=== PATIENT | female | born 1965 | race Caucasian/White ===

== ENCOUNTER 2023-08-07 16:15 | Outpatient (RCR) | payer OTHER, SELFPAY | END 2023-12-05 23:59 | disposition home or self-care (01) | PROVIDERS: PCP Nurse Practitioner Family; Visit Provider Pediatrics | DX: M17.0 Bilateral primary osteoarthritis of knee (principal); M25.862 Other specified joint disorders, left knee; M25.562 Pain in left knee; M25.561 Pain in right knee; M25.551 Pain in right hip; Z51.89 Encounter for other specified aftercare | CPT/HCPCS: 97110; 97140; 97161 ==

== ENCOUNTER 2025-03-18 06:47 | Day surgery (SDC) | payer BC, SELFPAY ==
[2025-03-18] VITALS (22 sets, daily range): BP systolic 112–163; BP diastolic 64–89; PULSE 49–79; RESP 15–20; TEMP 35.6–37; O2SAT 93–100; BMI 46.0
[2025-03-18] MEDS: LACTATED RINGERS 1000 ML 1,000 ML 100 ML IV ×2 (06:50→09:02)
[2025-03-18] MEDS: SODIUM CHLORIDE 0.9 % (FLUSH) 10 ML SYRINGE IVF (07:45)
[2025-03-18] MEDS: CELECOXIB 200 MG CAPSULE PO ×2 (08:09→21:51)
[2025-03-18] MEDS: ACETAMINOPHEN 500 MG TABLET 1000 MG PO ×3 (08:09→21:51)
[2025-03-18] MEDS: OXYCODONE (CR) 10 MG TAB.ER.12H PO (08:10)
[2025-03-18] MEDS: fentaNYL 100 MCG/2 ML inj IVP (08:17)
[2025-03-18] MEDS: MIDAZOLAM HCL 1 MG/ML inj IVP (08:17)
--- NOTE | 2025-03-18 08:26 | SUR.PREOP ---
TIME?OUT:?0815, left knee PT/RN/MDA?VERIFICATION?OF?SURGICAL?SITE,?PROCEDURE,?AND?CONSENT OBTAINED?PRIOR?TO?INVASIVE?PROCEDURE.
[2025-03-18] MEDS: TRANEXAMIC ACID 100 MG/ML INJ 1000 MG IV (08:51)
[2025-03-18] MEDS: CEFAZOLIN 1 GM inj IVP (08:51)
--- NOTE | 2025-03-18 10:06 | CRLHL7_ITS ---
For Patients: As a result of the Cures Act, medical imaging exams and procedure reports are released immediately into your electronic medical record. You may view this report before your referring provider. If you have questions, please contact your health care provider. Indication: TKA postop Technique: Two views left knee Findings/Impression: Hardware from a left total knee arthroplasty is in satisfactory position. Bone alignment is normal. No sign of acute fracture. Postop changes are within normal limits. Dictated by Sam Cueto MD @ 03/18/2025 11:43:57 AM (Electronically Signed)
--- NOTE | 2025-03-18 10:09 | P.ORPRC_ITS ---
Procedure Note Date of procedure: 03/18/25 Procedure: PREOPERATIVE DIAGNOSIS: Left knee osteoarthritis POSTOPERATIVE DIAGNOSIS: Left knee osteoarthritis NAME OF OPERATION: Left total knee arthroplasty SURGEON: Gabe Ray MD RN NAVIGATOR: MELLISA Duffy ANESTHESIA: Spinal ESTIMATED BLOOD LOSS: 0 mL COMPLICATIONS: None SPECIMENS: None DRAINS: None PREOPERATIVE ANTIBIOTICS: Ancef 2 grams, antibiotic impregnated cement IMPLANTS: 1. J&J Attune revision CRS # 5 posterior stabilized femur, 14 mm x 50 mm cemented stem 2. #4 revision CRS fixed-bearing tibia, 14 mm x 50 mm cemented stem 3. #5 posterior stabilized, 5 mm fixed-bearing polyethylene 4. 35 patella INDICATIONS: The patient is a 59-year-old with a longstanding history of severe, unrelenting left knee pain secondary to end-stage (grade IV) left knee osteoarthritis. Despite appropriate nonoperative management, including activity modification, anti-inflammatories, [id number] pain medication, bracing, physical therapy, and injections they continue to have pain and disability. Operative intervention was offered. The risks, benefits and expected outcomes were discussed in detail. These included but were not limited to: Infection, bleeding, injury to blood vessel or nerve, venous thromboembolism. All questions were answered to their satisfaction. Use of an engineer first assistant was necessary throughout the case for patient positioning and safety, soft tissue retraction, and closure. A modifier 22 should be added to this case. The patient's weight of 107 kg with a BMI of 46 made the dissection more challenging. Additionally, stems were used on both sides of the joint to reduce the risk of aseptic loosening, given the patient's high BMI. These factors added time and cost to complete the case. PROCEDURE: Spinal anesthesia was administered. The patient was placed supine on the operating table. The engineer first assistant made sure the patient was positioned appropriately. The lower extremity was prepped and draped in the usual sterile fashion. The limb was exsanguinated with the Fidel bandage. The pneumatic tourniquet was inflated to 300 mmHg. A standard anterior incision was made with the knee in flexion. Subcutaneous dissection was sharply taken through fascial layer #1. Full-thickness medial and lateral flaps were elevated. The engineer first assistant retracted the soft tissues and protected them throughout the case. A standard subvastus approach was made. The patella was subluxed. The infrapatellar fat pad was debrided. The menisci and cruciate ligaments were sharply d?brided. Marginal osteophytes were d?brided with the rongeur. The drill was used to penetrate the femoral canal. The canal was aspirated and irrigated with pulse lavage. The intramedullary femoral guide was placed for a 5-degree valgus cut, removing 10 mm off the distal femur. The saw was used to make the cut. Whitesides line and the trans epicondylar axis were marked. The femoral sizing guide was pinned onto the distal femur. Three degrees of external rotation nicely parallels the transepicondylar axis. Pins were placed for posterior referencing. The four-in-one cutting guide was pinned onto the distal femur. The anterior, posterior, and chamfer cuts were made. The engineer first assistant protected the collateral ligaments. The revision trial was placed. The box cuts were made. The drill was used x2. The stemmed, boxed trial was placed and was an excellent fit. Attention was then turned to the proximal tibia. The intramedullary tibial guide was placed for a neutral varus/valgus cut with 5 degrees of posterior slope, removing 2 mm based off the medial tibial surface. The engineer first assistant prote cted the collateral ligaments and the neurovascular bundle. The saw was used to make the cut. Trial components were placed. The knee was nicely balanced in both flexion and extension. The trial components were removed. The tray was placed in appropriate rotation, parallel to our tibial cutting pins. It was pinned by the engineer first assistant and the drill x2 was used. The stemmed tibial trial was placed. The punch was used. The tray was removed. The punch was used again. Attention was then turned to the patella. [place] patellar thickness was 21 mm. The lobster claw resection guide was used with the 7.5 mm kavon. The saw was used to make the cut. Drill holes were made by the engineer first assistant. The trial was placed and was an excellent fit. Cancellous surfaces were irrigated with pulse lavage and thoroughly dried by the engineer first assistant. We cemented the tibial component, then the femoral component. We impacted the 5 mm polyethylene onto the tibial tray. The knee was brought into full extension. We then cemented the patellar component. Excessive cement was removed. The cement was allowed to harden. The knee was taken through a range of motion and was found to be nicely balanced in both flexion and extension. The patella tracks centrally. The engineer first assistant did a three minute dilute Betadine solution soak. The engineer first assistant irrigated the wound with 3 liters of normal saline via pulse lavage. The engineer first assistant reapproximated the extensor mechanism with #1 Vicryl in an interrupted [id number]-gu-[id number] fashion. The engineer first assistant then ran the extensor mechanism with a #1 PDO Stratafix. The engineer first assistant closed the subcutaneous tissues with a 3-0 Stratafix and the skin with a running 3-0 Stratafix in a subcuticular fashion. Glue was used to seal the skin. The engineer first assistant placed a dry dressing. Sponge and needle counts were correct x2. The patient tolerated the procedure well. There were no apparent complications. They were carefully transferred to the hospital bed and taken to the postanest hesia care unit in satisfactory condition. PLAN: The patient will be mobilized with physical therapy. Aspirin will be used for DVT prophylaxis. They will be discharged to home once medically appr opriate.
--- NOTE | 2025-03-18 10:44 | P.ANES_ITS ---
Anesthesia Charges Start Date/Time Anesthesia Start Date: 03/18/25 Anesthesia Start Time: 08:27 Stop Date/Time Anesthesia Stop Date: 03/18/25 Anesthesia Stop Time: 10:43 Coding CPT Codes CPT Codes: ANESTH KNEE ARTHROPLASTY - 08898 ([id number]) P3 - PATIENT W/SEVERE SYS DISEASE, QK - ACCOUNT EXECUTIVE KEY ACCOUNTS 2-4 CNCRNT ANES PROC, QX - TOPSTITCHER ZIGZAG SVC W/ MD MED DIRECTION
--- NOTE | 2025-03-18 10:44 | W.ANESCHARGE ---
Anesthesia Charges Start Date/Time Anesthesia Start Date: 03/18/25 Anesthesia Start Time: 08:27 Stop Date/Time Anesthesia Stop Date: 03/18/25 Anesthesia Stop Time: 10:43 Coding CPT Codes CPT Codes: ANESTH KNEE ARTHROPLASTY - 61227 ([id number]) P3 - PATIENT W/SEVERE SYS DISEASE, QK - CASING WRINGER OPERATOR 2-4 CNCRNT ANES PROC, QX - LABORATORY ADMINISTRATIVE DIRECTOR SVC W/ MD MED DIRECTION
--- NOTE | 2025-03-18 11:38 | P.ANES_ITS ---
Anesthesia Charges Start Date/Time Anesthesia Start Date: 03/18/25 Anesthesia Start Time: 08:27 Stop Date/Time Anesthesia Stop Date: 03/18/25 Anesthesia Stop Time: 10:43 Coding CPT Codes CPT Codes: ANESTH KNEE ARTHROPLASTY - 98232 ([id number]) QK - INSULATION BOARD CALENDER OPERATOR 2-4 CNCRNT ANES PROC, QX - INSIGHTS STRATEGIST SVC W/ MD MED DIRECTION, P3 - PATIENT W/SEVERE SYS DISEASE
--- NOTE | 2025-03-18 11:38 | W.ANESCHARGE ---
Anesthesia Charges Start Date/Time Anesthesia Start Date: 03/18/25 Anesthesia Start Time: 08:27 Stop Date/Time Anesthesia Stop Date: 03/18/25 Anesthesia Stop Time: 10:43 Coding CPT Codes CPT Codes: ANESTH KNEE ARTHROPLASTY - 63675 ([id number]) QK - ANIMAL SCIENTIST 2-4 CNCRNT ANES PROC, QX - MEN'S CUSTOM HAIR PIECE CONSULTANT SVC W/ MD MED DIRECTION, P3 - PATIENT W/SEVERE SYS DISEASE
--- NOTE | 2025-03-18 11:39 | W.PM.NB ---
Nerve Block Nerve Block Time Seen by Provider: 08:22 Date Seen: 03/18/25 Type of block requested by surgeon for post-operative analgesia: adductor canal Side: left Time out performed: Yes Verification of patient name: Yes Verification of date of : Yes Site marking: site marked Name of person performing procedure: Harman Continuous monitoring Was continuous monitoring of O2 sat, B/P, horseradish maker, recorded every 15 minutes?: Yes Procedure Checklist: sterile prep, needles and gloves Ultrasound guided. Images saved: Yes Medications given in 5ml increments after negative aspiration: Marcaine %: 0.25 mL: 15 Needle gauge: 20 Precedex (mcg): 25 Patient tolerated procedure well: Yes Block Charges Block Charge (with Pro Fee): Femoral Nerve Use of Ultrasound Machine for Block: Yes- US Guidance/pain block
--- NOTE | 2025-03-18 11:39 | W.PM.NB ---
Nerve Block Nerve Block Time Seen by Provider: 08:22 Date Seen: 03/18/25 Type of block requested by surgeon for post-operative analgesia: geniculars Side: left Time out performed: Yes Verification of patient name: Yes Verification of date of : Yes Site marking: site marked Name of person performing procedure: Harman Continuous monitoring Was continuous monitoring of O2 sat, B/P, acid pumper, recorded every 15 minutes?: Yes Procedure Checklist: sterile prep, needles and gloves Ultrasound guided. Images saved: Yes Medications given in 5ml increments after negative aspiration: Marcaine %: 0.25 mL: 9 Needle gauge: 25 Patient tolerated procedure well: Yes Block Charges Block Charge (with Pro Fee): Genicular Nerve Block
[2025-03-18] MEDS: OXYCODONE 5 MG TABLET PO ×3 (13:16→21:52)
--- NOTE | 2025-03-18 15:16 | PC.NURSE ---
Patient ambulates with assist of one gait belt, and walker. Patient tolerating regular diet. Patient manages pA with prn medications. family at bedside
--- NOTE | 2025-03-18 15:18 | PC.NURSE ---
Patient up with assist of gait belt, and walker. Patient tolerating a regular diet. Patients pain managed with prn medications, rest, and ice. Patient is call light appropriate, family at bedside.
--- NOTE | 2025-03-18 15:50 | PM.IMCN1 ---
Date of Consult Patient: Other Consult date: 03/18/25 Requesting Physician: Orthopedics Primary Care Provider: Poly Somers MD Consult Narrative Reason for consult: Medical management of comorbidities Narrative: Radha Mcdonald is a 59 year old female who presented to the hospital today for an elective L TKA. There were no surgical or anesthetic complications noted during procedure. Patient's H&P reviewed, PCP is Dr. Poly Somers at the [facility]. Past medical history significant for: Pre diabetes, osteoarthritis History of blood clots: No Postoperative plan: Home with Review of Systems Status of ROS: Reports: 10 or more systems reviewed and unremarkable except as noted in History and below PFSH [facility] Medical History (Updated 01/27/25 @ 15:28 by Kristen Hernández) Upper respiratory infection ?J06.9 - Acute upper respiratory infection, unspecified (ICD-10) Hoarseness ?R49.0 - Dysphonia (ICD-10) Post-viral cough syndrome ?R05.8 - Other specified cough (ICD-10) Prediabetes ?R73.03 - Prediabetes (ICD-10) Surgical History (Updated 03/18/25 @ 15:52 by Angelica Wang MD) Status post left knee replacement ?Z96.652 - Presence of left artificial knee joint (ICD-10) [place] teeth extracted ?K08.409 - Partial loss of teeth, unspecified cause, unspecified class (ICD-10) History of tonsillectomy ?Z90.89 - Acquired absence of other organs (ICD-10) Social History (Updated 01/17/25 @ 08:56 by Angelika Paredes ~ [facility], [facility]) What is your current living situation?: I presently have a place to live Problems where you live: no known problems In the past 12 months, utilities in danger of being shut off: no In past 12 months, lack of transportation kept you from medical appts, meetings, work, or getting things needed for daily living: no In the past 12 mos, have been you worried that your food would run out before you had money to buy more?: never true In the past 12 mos, the food you bought just didn't last and you didn't have money to buy more?: never true Smoking Status: Never smoker Do you use any of these nicotine containing products: None Second hand tobacco smoke exposure: No How often do you have a drink containing alcohol: never AUDIT-C Alcohol total score: 0 Non-prescribed substance use: denies use Caffeine: No Meds Home Medications and Allergies Home Medications ?Medication ?Instructions ?Recorded ?Confirmed ?Type metformin 500 mg tablet 500 mg PO BIDWMEAL 03/14/25 03/18/25 History acetaminophen 500 mg capsule 500 - 1,000 mg (1 - 2 x 500 mg) PO 03/18/25 Rx Q6H PRN pain #100 caps aspirin 81 mg chewable tablet 81 mg PO BID for DVT prophylaxis 03/18/25 Rx (Aspirin Childrens) 30 days #60 tabs oxycodone 5 mg tablet 2.5 - 5 mg (0.5 - 1 x 5 mg) PO 03/18/25 Rx Q4-6H PRN Pain #42 tabs sennosides 8.6 mg tablet (Senna 17.2 mg (2 x 8.6 mg) PO BID PRN 03/18/25 Rx Lax) constipation #100 tabs Allergies Allergy/AdvReac Type Severity Reaction Status Date / Time No Known Drug Allergies Allergy Verified 03/18/25 07:08 Exam Narrative: Exam Narrative: GEN: Alert and oriented, nontoxic. Sitting comfortably in bed HEENT: EOMIs bilaterally, no scleral icterus CV: RRR, No concerning murmurs R: LCTA bilaterally without concerning wheezing, air movement adequate Ext: wwp, no concerning edema, bilateral foot SCDs Skin: No concerning skin lesions or rashes on exposed skin Neuro: Nonfocal Psych: Appropriate Const: Vital Signs, click to edit/add: Vital Signs - 24 hr 03/18/25 07:27 03/18/25 08:18 03/18/25 10:38 Temperature 98.2 F 97.6 F Pulse Rate 72 65 60 Respiratory Rate 20 20 16 Blood Pressure 143/80 H 151/75 H 113/66 Pulse Oximetry 98 98 93 Oxygen Delivery Me thod Room Air Nasal Cannula Room Air Oxygen Flow Rate 2 03/18/25 10:45 03/18/25 10:50 03/18/25 10:55 Temperature Pulse Rate 55 L 52 L 52 L Respiratory Rate 15 16 16 Blood Pressure 112/73 121/74 117/80 Pulse Oximetry 95 98 98 Oxygen Delivery Me thod Oxygen Flow Rate 03/18/25 11:00 03/18/25 11:05 03/18/25 11:30 Temperature 98.0 F 96.1 F L Pulse Rate 49 L 53 L 49 L Respiratory Rate 16 16 16 Blood Pressure 121/80 113/64 132/78 Pulse Oximetry 98 100 99 Oxygen Delivery Me thod Room Air Room Air Oxygen Flow Rate 03/18/25 11:45 03/18/25 11:49 03/18/25 12:00 Temperature 96.8 F L 96.2 F L 96.7 F L Pulse Rate 52 L 50 L 51 L Respiratory Rate 18 16 16 Blood Pressure 132/74 122/67 122/74 Pulse Oximetry 98 98 98 Oxygen Delivery Me thod Room Air Room Air Room Air Oxygen Flow Rate 03/18/25 12:15 03/18/25 12:30 03/18/25 13:00 Temperature 98.0 F 97.9 F Pulse Rate 51 L 54 L 62 Respiratory Rate 16 16 16 Blood Pressure 123/80 120/74 123/68 Pulse Oximetry 97 99 98 Oxygen Delivery Me thod Room Air Room Air Room Air Oxygen Flow Rate 2 2 03/18/25 14:00 03/18/25 15:00 Temperature 97.9 F 97.3 F L Pulse Rate 65 65 Respiratory Rate 16 16 Blood Pressure 129/83 159/77 H Pulse Oximetry 98 98 Oxygen Delivery Me thod Room Air Room Air Oxygen Flow Rate 2 2 Assessment and Plan Assessment and plan (1) Status post left knee replacement: Status: Acute (2) Prediabetes: Status: Acute Plan - pain management and prophylaxis per orthopedic surgery team - continue home medications for comorbidities - anticipate routine postoperative course
[2025-03-18] MEDS: CEFAZOLIN 2 GM in 0.9 % SODIUM CHLORIDE Mini-bag 100 ML IVPB (16:12)
--- NOTE | 2025-03-18 19:24 | PC.NURSE ---
End of Shift: Patient pleasant and cooperative, A&O. VSS, afebrile. SpO2 maintained above 90% on RA. Patient reports pain on her left knee, managed with PRN and medication, see MAR. Dressing to left knee C/D/I. 1A walker and gait belt.
[2025-03-18] MEDS: ASPIRIN 81 MG TABLET EC PO (21:51)
[2025-03-18] MEDS: SENNOSIDES 1 TAB TABLET 2 TAB PO (21:51)
[2025-03-19] MEDS: CEFAZOLIN 2 GM in 0.9 % SODIUM CHLORIDE Mini-bag 100 ML IVPB ×2 (00:48→08:09)
[2025-03-19 04:01] VITALS: BP 140/68; PULSE 64; RESP 16; TEMP 36.9; O2SAT 98
[2025-03-19] MEDS: ACETAMINOPHEN 500 MG TABLET 1000 MG PO (04:01)
--- NOTE | 2025-03-19 06:40 | PC.NURSE ---
Pt pleasant, alert and oriented. Pain rated 6/10, prn oxy given. Denies nausea. Dressing C/D/I. Ice pack to op site. Pt 1a walker and gait belt. Pt in bed, appears to be resting, call light within reach.?
[2025-03-19 07:04] LABS: Basophils Percent Auto 0.1 % (0.0-3.0); Eosinophils Percent Auto 0.2 % (0.0-7.0); Hematocrit 35.7 % (33.0-51.0); Hemoglobin* 11.9 gm/dL (12.0-16.0); Immature Granulocytes Pct Auto 0.2 %; Lymphocytes Percent Auto 13.7 % (20-44); Mean Corpuscular HGB Conc 33 gm/dL (32-36); Mean Corpuscular Hemoglobin 29 pg (26-34); Mean Corpuscular Volume 86 fL (80-100); Neutrophils Percent Auto 73.8 % (42.0-72.0); Platelet Count* 210 K/uL (140-440); RDW Coefficient of Variation % 13.6 % (11.5-15.5); Red Blood Count 4.16 m/uL (4.00-5.20); White Blood Count* 11.12 K/uL (4.50-11.00)
[2025-03-19 07:06] LABS: Slide Review Reflex No
[2025-03-19 07:18] LABS: Chloride* 100 mmol/L (96-114)
[2025-03-19 07:19] LABS: Potassium* 4.4 mmol/L (3.6-5.1); Sodium* 132 mmol/L (135-149)
[2025-03-19 07:21] LABS: Blood Urea Nitrogen* 13 mg/dL (7-30); Creatinine* 0.8 mg/dL (0.5-1.5); Est. Creatinine Clearance* 42.44; Estimated Glomerular Filt Rate 84 ml/min
[2025-03-19 07:22] LABS: Anion Gap 5 mEq/L (7-15); Calcium* 8.9 mg/dL (8.4-10.6); Carbon Dioxide* 27 mmol/L (20-32); Glucose* 105 mg/dL (60-115)
[2025-03-19 07:30] VITALS: BP 143/81; PULSE 64; RESP 16; RESP 18; TEMP 36.6; O2SAT 100
[2025-03-19] MEDS: OXYCODONE 5 MG TABLET PO (08:10)
[2025-03-19] MEDS: CELECOXIB 200 MG CAPSULE PO (08:10)
[2025-03-19] MEDS: SENNOSIDES 1 TAB TABLET 2 TAB PO (08:10)
[2025-03-19] MEDS: ASPIRIN 81 MG TABLET EC PO (08:10)
--- NOTE | 2025-03-19 08:19 | PM.ORPN ---
Subjective Subjective Time Seen by Provider: 07:45 Date Seen: 03/19/25 Principal diagnosis: Status post left knee replacement Interval history: Radha is comfortable this morning. She will discharge to home with her today. She denies nausea vomiting. Ortho Exam Narrative Exam Narrative: Alert and oriented x3. Patient is in no acute distress. Converses without labored breathing. Hearing is grossly intact. Ambulates with a walker. Examination of the left knee shows the dressing is intact. Mild hematoma anterior knee. No erythema or warmth or sign of infection. Calves are soft and nontender. CMS intact left lower extremity. She is not able to straight leg raise today. Const Vital Signs, click to edit/add: Vital Signs - 24 hr 03/18/25 10:38 03/18/25 10:45 03/18/25 10:50 Temperature 97.6 F Pulse Rate 60 55 L 52 L Pulse Rate [Right Pulse Oximeter] Respiratory Rate 16 15 16 Blood Pressure 113/66 112/73 121/74 Blood Pressure [Left Arm] Pulse Oximetry 93 95 98 Oxygen Delivery Method Room Air Oxygen Flow Rate 03/18/25 10:55 03/18/25 11:00 03/18/25 11:05 Temperature 98.0 F Pulse Rate 52 L 49 L 53 L Pulse Rate [Right Pulse Oximeter] Respiratory Rate 16 16 16 Blood Pressure 117/80 121/80 113/64 Blood Pressure [Left Arm] Pulse Oximetry 98 98 100 Oxygen Delivery Method Room Air Oxygen Flow Rate 03/18/25 11:30 03/18/25 11:45 03/18/25 11:49 Temperature 96.1 F L 96.8 F L 96.2 F L Pulse Rate 49 L 52 L 50 L Pulse Rate [Right Pulse Oximeter] Respiratory Rate 16 18 16 Blood Pressure 132/78 132/74 122/67 Blood Pressure [Left Arm] Pulse Oximetry 99 98 98 Oxygen Delivery Method Room Air Room Air Room Air Oxygen Flow Rate 03/18/25 12:00 03/18/25 12:15 03/18/25 12:30 Temperature 96.7 F L 98.0 F Pulse Rate 51 L 51 L 54 L Pulse Rate [Right Pulse Oximeter] Respiratory Rate 16 16 16 Blood Pressure 122/74 123/80 120/74 Blood Pressure [Left Arm] Pulse Oximetry 98 97 99 Oxygen Delivery Method Room Air Room Air Room Air Oxygen Flow Rate 2 03/18/25 13:00 03/18/25 14:00 03/18/25 15:00 Temperature 97.9 F 97.9 F 97.3 F L Pulse Rate 62 65 65 Pulse Rate [Right Pulse Oximeter] Respiratory Rate 16 16 16 Blood Pressure 123/68 129/83 159/77 H Blood Pressure [Left Arm] Pulse Oximetry 98 98 98 Oxygen Delivery Method Room Air Room Air Room Air Oxygen Flow Rate 2 2 2 03/18/25 15:00 03/18/25 15:00 03/18/25 16:00 Temperature 97.6 F Pulse Rate 66 Pulse Rate [Right Pulse Oximeter] Respiratory Rate 16 16 16 Blood Pressure 145/89 H Blood Pressure [Left Arm] Pulse Oximetry 99 100 Oxygen Delivery Method Room Air Room Air Oxygen Flow Rate 03/18/25 17:00 03/18/25 19:35 03/18/25 23:00 Temperature 97.6 F 98.6 F Pulse Rate 66 Pulse Rate [Right Pulse Oximeter] 79 Respiratory Rate 16 18 18 Blood Pressure 141/80 H Blood Pressure [Left Arm] 163/70 H Pulse Oximetry 99 96 96 Oxygen Delivery Method Room Air Room Air Room Air Oxygen Flow Rate 03/18/25 23:00 03/18/25 23:50 03/19/25 04:01 Temperature 97.6 F 98.5 F Pulse Rate Pulse Rate [Right Pulse Oximeter] 72 72 64 Respiratory Rate 16 16 16 Blood Pressure Blood Pressure [Left Arm] 135/76 140/68 H Pulse Oximetry 98 98 Oxygen Delivery Method Room Air Room Air Oxygen Flow Rate 03/19/25 07:30 03/19/25 07:30 03/19/25 07:30 Temperature 97.9 F Pulse Rate Pulse Rate [Right Pulse Oximeter] 64 Respiratory Rate 16 18 18 Blood Pressure Blood Pressure [Left Arm] 143/81 H Pulse Oximetry 100 100 Oxygen Delivery Method Room Air Room Air Oxygen Flow Rate Assessment and Plan Assessment and plan (1) Status post left knee replacement: Status: Acute Assessment and Plan: Plan for discharge is today to home if they meet discharge criteria. DVT prophylaxis includes aspirin 81 mg twice daily x1 month, Compression stockings as needed for swelling. Frequent ambulation, every hour throughout the day. Remove dressing in 1 week. Observe wound and phone Orthopedics with any questions or concerns Return to clinic in 1 week for a wound check Return to clinic in 6 weeks with surgeon Minimize narcotic use. Wean off and discontinue soon as possible. Activities as tolerated. No strenuous activity. Outpatient physical therapy as scheduled. Ice and elevate the operative extremity. No restriction on ice.
--- NOTE | 2025-03-19 11:58 | PC.NURSE ---
discharge. Pt was very pleasant, she is alert and oriented x4. . Pain rated 2-3/10, prn oxy given before PT and OT. . she is eating, drinking and voiding with no problems, . Dressing C/D/I. active Ice pack to op site. Pt is up with 1assist, walker and gait belt. call light within reach.? alarms are on. PT and OT worked with her. discharge packet was done., went over medications, appointment, education and instructions. pt went over and signed personal belonging sheet. she left with 2 active ice. SL was d/c intact. she got a w/c ride to her car.
== END 2025-03-19 10:45 | disposition home or self-care (01) ==
LOC: OR 06:50 → MEDSURG 09:33
PROVIDERS: Family Medicine; PCP Pediatrics; Visit Provider Orthopaedic Surgery
PROC: (CPT 27447; principal; 2025-03-18 09:00)
DX: M17.12 Unilateral primary osteoarthritis, left knee (principal); G89.18 Other acute postprocedural pain; R73.03 Prediabetes; E66.01 Morbid (severe) obesity due to excess calories; Z68.42 Body mass index [BMI] 45.0-49.9, adult; Z79.84 Long term (current) use of oral hypoglycemic drugs; Z79.82 Long term (current) use of aspirin
CPT/HCPCS: 27447; 01402; 36415; 64447; 64454; 73560; 76942; 80048; 85025; 97110; 97116; 97161; 97165; 97530; 97535; A9270; C1776; J0665; J0690; J1100; J2250; J2405; J2704; J3010; J7120

== ENCOUNTER 2025-05-01 08:30 | Outpatient (RCR) | payer BC, SELFPAY ==
--- NOTE | 2025-03-19 15:25 | PC.SOCIAL ---
Pt. discharged home today after a LTKA. Pt. is moving well and no additional resources from social work was needed for discharge.
--- NOTE | 2025-03-21 09:31 | PT.OPEX ---
PT [facility] Start: 03/20/25 15:42 Freq: Status: Active Protocol: Document 03/21/25 07:24 HLA (Rec: 03/21/25 09:15 HLA [id number]) E-signed By Nathalie Pillai, PT, DPT Physical Therapy Outpatient Evaluation Insurance Information Recert Due Date 06/18/25 Insurance Name Medicare B,Blue Cross/Blue Shield Medical Diagnosis L TKA PMHx of URI, pre diabetes Treating Diagnosis weakness, impaired ROM, impaired transfers, impaired amb after L TKA Referring MD Ray Subjective Preferred Name Radha Subjective Feels like things are going really well at home; up to 2x/day. Using ice, up with walker. Feels she passed out seated doing seated flex 03/19/25, did have a possible seizure but likely was vasovagal per physician. Did vomit, called hospital but did not need to go in. No episodes since that time. 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 Instructed in activity level and gt progression for home. Stairs-step to pattern rails B Balance fair with walker Posture mildly rounded shldrs, hip flex in standing Sensation/Reflexes intact to light touch Other/Pertinent circumference L knee Objective 59 cm 7 cm prox to patella 54 cm mid patella 51 cm 7 cm distal to patella AAROM L knee supine 8-90 with strap AAROM seated L knee 3-95 with strap Access Code: [email or web address] URL: [email or web address] Date: 03/21/2025 Prepared by: Nathalie Pillai Exercises - Supine Single Leg Ankle Pumps - 3-5 x daily - 7 x weekly - 10 reps - edema management exercise type - Supine Quad Sets - 3 x daily - 7 x weekly - 2 sets - 10 reps - 5 seconds hold - strength exercise type - Supine Short Arc Quad - 3 x daily - 7 x weekly - 10 reps - 5 seconds hold - strength exercise type - Active Straight Leg Raise with Quad Set - 3 x daily - 7 x weekly - 10 reps - 2-3 seconds hold - strength exercise type - Supine Heel Slide - 3 x daily - 7 x weekly - 10 reps - range of motion exercise type - Supine Isometric Hamstring Set - 3 x daily - 7 x weekly - 10 reps - 5 seconds hold - strength exercise type - Seated Long Arc Quad - 3 x daily - 7 x weekly - 10 reps - 5 seconds hold - range of motion/strength exercise type - Seated Knee Flexion Stretch - 3 x daily - 7 x weekly - 10 reps - 5 seconds hold - range of motion/stretch exercise type - Seated Passive Knee Extension - 3 x daily - 7 x weekly - 1 reps - 5-15 minutes hold - range of motion/ stretch exercise type Patient Education - Safe Practices For Preventing Falls - Going Up and Down Stairs With Two Rails After Surgery - Walker WBAT - Ice Functional Test LEFS Performed & Score Assessment Assessment/ PPatient underwent L TKA on 03/17/25 returning home 03/18. PMHx includes prediabetes and URI. Pt lives at baseline with her spouse, 1 level home, no stairs. She has been doing her ex, amb with walker, icing as instructed at home. She did have what appears to be a vasovagal episode at home with ex, no ED visit needed. No falls. She is up with her walker, sba, vc heel toe gt and posture. L knee 5-95 seated AAROM. Pt presents with edema L LE, but due to leg girth we were unable to add tubigrip. Discussed mavis wrap if edema increases; circumferential measurements taken. Therapist reviewed positioning, use of ice, activity level, bed mobility, transfers, gt with walker, stairs and car transfers today. Patient presents with edema, pain surgical leg, impaired ROM, impaired strength, impaired transfers and impaired ambulation and will benefit from PT twice weekly to regain full AROM L knee, strength, balance and gt with walker. Primary Functional impaired ROM, impaired strength, impaired amb, impaired Limitations balance, impaired mobility post L TKA Plan of Care Rehabilitation Good Potential Physical Therapy Within 10-12 weeks: Goals 1. Pt will have knee AROM 0-120 degrees for transfers, ADLs, and stairs independence. 2. Pt will amb 20 min with se cane or no device as indicated, safely and independently for community and household ambulation. 3. Pt will be independent in home ex program for [facility] pain management and to promote independence and to decrease fall risk. 4. Pt will ascend/descend 13 stairs with railing independently for community mobility. Coordination/ Referral Source,Patient Caregiver Communication With Treatment Plan/ Gait Training,Ice/Cold/Vasopneumatic,Joint Mobilization Direct Interventions ,Manual Therapy,Neuromuscular Re-ed,Orthotics/Braces, Self-Care/Home Management,Therapeutic Activities, Therapeutic Exercises Frequency/Duration 2x/week x 10-12 weeks Patient Will Be Completion of LTG(s),Skills Plateau,Independent w/HEP, Discharged From Independently Progressing Therapy Evaluation Billing Untimed Code 13 Treatment Minutes PT Eval No Charge No Complexity Low Certification Information Initial 03/21/25 Certification Date Ending Certification 06/18/25 Date Provider Signature Yes Required Provider Signature POC & Medical Necessity Shows Agreement With Physician NPI Number Write NPI# Here Physician Comment/ : Change Physician Signature Please Sign/Date Here & Date Requested
== END 2025-05-01 14:26 | disposition home or self-care (01) ==
PROVIDERS: PCP Pediatrics; Visit Provider Orthopaedic Surgery
DX: Z47.1 Aftercare following joint replacement surgery (principal); Z96.652 Presence of left artificial knee joint; Z51.89 Encounter for other specified aftercare
CPT/HCPCS: 97110; 97112; 97140; 97161; A9270; J2250; J3010